=== PATIENT | female | born 1990 | race African-American/Black ===

== ENCOUNTER → 2016-12-03 | Day surgery (SDC) | payer OTHER ==
[2016-12-03] VITALS (11 sets, daily range): BP systolic 132–149; BP diastolic 62–91
[~2016-12-03] VITALS: Ht 175.3 cm; Wt 145.1 kg
[~2016-12-03] MED LIST: Acetaminophen (Non formulary) 1,000 MG/100 ML ML IV SCH; Alfentanil 2ml Inj ONE; Atropine Inj 1mg/10ml Syr IV PRN; Bacitracin 50000 Units Vial ONE; Bupivacaine w/Epi 0.5% 30ml Vial INJ ONE; D5 1/2NS 1,000 ML IV SCH; DiphenhydrAMINE 50mg/ml Inj IVP PRN; EPINEPHrine 1mg/1ml Amp ONE; HYDROmorphone 1mg/ml Carpuject SUBQ PRN; Hydromorphone 0.5mg/0.5ml inj IVP PRN; Ketorolac 30mg Inj IV PRN; Ketorolac 60mg Inj IV PRN; LORazepam Inj 2mg/ml 1ml IV PRN; LR 1000ml 1,000 ML IVLG SCH; LR 1000ml ONE; Labetalol 5mg/ml 20ml vial IV ONE; Labetalol 5mg/ml 20ml vial IV PRN; Lidocaine 1% 10mg/ml/Epi 0.005mg/ml 30ml vial INJ ONE; Lidocaine 1% MPF 10mg/ml 5ml ONE; Meperidine 25mg/ml Inj IV PRN; Metoclopramide 10mg/2ml Inj IVP PRN; Metoprolol 5mg/5ml Inj ONE; Midazolam 2mg/2ml Inj IVP PRN; Midazolam 2mg/2ml Inj ONE; NS Irrig 1000ml ONE; NS Irrig 4000ml IRRIG ONE; Norco 5mg/325mg tab ORAL PRN; Norco 7.5mg/325mg tab ORAL PRN; Oxycodone/Acetaminophen 5-325 ORAL PRN; Propofol 10mg/ml 20ml IV ONE; Ropivacaine 5mg/ml Vial 20ml INJ ONE; Tylenol #3 tab (300mg/30mg) ORAL PRN; ceFAZolin 1gm/50ml Premix 50 ML IV ONE; celeBREX 200mg Cap **SURGERY PATIENTS ONLY ORAL ONE; fentaNYL 100 mcg/2 mL IV PRN; fentaNYL 250mcg/5ml ONE; oxyCONTIN 20mg tab ORAL ONE
--- NOTE | 2016-12-03 06:54 | Pre-Procedure Note/Attestation ---
Pre-Procedure Note/Attestation Complete Prior to Procedure Planned Procedure: right Procedure Narrative: rt knee scope, ACL reconstruction, PLC reconstruction Indications for Procedure Pre-Operative Diagnosis: Rt knee ACL tear, PLC tear Attestation I attest that I discussed the nature of the procedure; its benefits; risks and complications; and alternatives (and the risks and benefits of such alternatives ), prior to the procedure, with the patient (or the patient's legal brand representative). I attest that, if there was a reasonable possibility of needing a blood transfusion, the patient (or the patient's legal brand representative) was given the [facility] standardized written summary, pursuant to the Leodan Roque Blood Safety Act ([place] Health and Safety Code # 1645, as amended). I attest that I re-evaluated the patient just prior to the surgery and that there has been no change in the patient's H&P, except as documented below:NONE STEFANY ALMODOVAR Dec 03, 2016 06:54
--- NOTE | 2016-12-03 13:26 | Anethesia Preoperative Eval ---
Anesthesia Pre-op PMH/ROS General Date of Evaluation: Dec 03, 2016 Time of Evaluation: 12:21 Anesthesiologist: Imtiaz ASA Score: ASA 2 Mallampati Score Class I : Soft palate, uvula, fauces, pillars visible Class II: Soft palate, uvula, fauces visible Class III: Soft palate, base of uvula visible Class IV: Only hard plate visible Mallampati Classification: Class III Surgeon: Maci Diagnosis: R Leg Pain Surgical Procedure: R knee ACL Repair Anesthesia History: none Family History: no anesthesia problems Allergies: Coded Allergies: No Known Allergies (Unverified , 11/28/16) Medications: see eMAR Past Medical History Other: obesity - BMI 47.3 Morbid Obesity Anesthesia Pre-op Phys. Exam Physician Exam Last Vital Signs Date Time Temp Pulse Resp B/P Pulse Ox O2 Delivery O2 Flow Rate FiO2 12/03/16 12:28 97.6 91 18 141/80 97 Room Air Constitutional: NAD Neurologic: CN 2-12 intact Cardiovascular: RRR Respiratory: CTA Gastrointestinal: S/NT/ND Airway Exam Mallampati Score: Class III MO: limited ROM: full Teeth: intact Anesthesia Pre-op A/P Labs Urine Test Test 12/03/16 12:10 Urine HCG, Qualitative Negative Risk Assessment & Plan Assessment: ASA 2 Plan: GA, Femoral Block Status Change Before Surgery: No Pre-Antibiotics Dru Grams Ancef IV Given Within 1 Hr of Incision: Yes Time Given: 12:46 Charles Kitchen MD Dec 03, 2016 13:26
--- NOTE | 2016-12-03 13:30 | Immediate Post-Op Evaluation ---
Immediate Post-Op Evalulation Immediate Post-Op Evalulation Procedure: R Knee ACL Repair Date of Evaluation: Dec 03, 2016 Time of Evaluation: 16:29 IV Fluids: 900 LR Blood Products: 0 Estimated Blood Loss: 150 Urinary Output: 0 Blood Pressure Systolic: 138 Blood Pressure Diastolic: 87 Pulse Rate: 97 Respiratory Rate: 16 O2 Sat by Pulse Oximetry: 99 Temperature (Fahrenheit): 96.9 Pain Score (1-10): 3 Nausea: No Vomiting: No Patient Status: awake, reacts, patent, extubated, none Hydration Status: adequate Dru Grams Ancef IV Given Within 1 Hr of Incision: Yes Time Given: 12:46 Charles Kitchen MD Dec 03, 2016 13:30
--- NOTE | 2016-12-03 16:15 | Brief Operative Note ---
Immediate Post Operative Note Operative Note Chief Complaint: rt knee instability Pre-op Diagnosis: rt knee ACL tear, PLC tear Procedure: rt knee scope, ACL reconstruction, PLC reconstruction Post-op Diagnosis: same as pre-op Findings: consistent w/pre-op dx studies Surgeon: md Maci Manager Agency: [facility] Anesthesiologist: MD terrence Anesthesia: general Specimen: none Complications: none Condition: stable Estimated Blood Loss: minimal Drains: none Implant(s) used?: Yes - biomet IRA MONET Dec 03, 2016 16:15
--- NOTE | 2016-12-03 16:23 | 48 Hour Post Anesthesia Eval ---
Post Anesthesia Evaluation Procedure: R Knee ACL Repair Date of Evaluation: Dec 03, 2016 Time of Evaluation: 18:43 Blood Pressure Systolic: 137 0: 86 Pulse Rate: 92 Respiratory Rate: 18 Temperature (Fahrenheit): 97.4 O2 Sat by Pulse Oximetry: 100 Airway: patent Nausea: No Vomiting: No Pain Intensity: 3 Hydration Status: adequate Cardiopulmonary Status: Stable Mental Status/LOC: patient returned to baseline Follow-up Care/Observations: 0 Post-Anesthesia Complications: 0 Follow-up care needed: ready to discharge Charles Kitchen MD Dec 03, 2016 16:23
--- NOTE | 2016-12-04 00:28 | Operative Note - Dictated ---
DATE OF OPERATION: 12/03/2016 PREOPERATIVE DIAGNOSES: 1. Right knee anterior cruciate ligament tear. 2. Right knee posterior lateral corner disruption with rupture of the lateral collateral ligament popliteus tendon and fracture of the tip of the fibula. PROCEDURE: 1. Right knee arthroscopy and extensive intra-articular shaving. 2. Right knee anterior cruciate ligament reconstruction using tibialis anterior allograft with sizing 9.5 mm with ToggleLoc femoral fixation and TunneLoc tibial fixation. 3. Right knee open posterior lateral reconstruction of the popliteus tendon as well as lateral collateral ligament with a tibialis anterior allograft size 7 mm through the fibular head and with fixation on the lateral femoral epicondyle with a single 7 mm interference screw. 4. Repair of the posterior lateral capsule as well as an open repair of the lateral meniscus using 2.9 mm double loaded juggernaut anchor loaded with #2 FiberWire sutures. 5. Repair of the biceps tendon and avulsion fracture of the fibula using two #2 FiberWire sutures repaired back on to the reconstructed lateral collateral ligament. SURGEON: Bryant Lux M.D. VIDEO TAPE EDITOR: Vicenta Fox PA-C. ANESTHESIOLOGIST: Charles Kitchen M.D. ANESTHESIA: General LMA anesthesia combined with femoral nerve block for postoperative pain management. EBL: Less than 200 mL. TOURNIQUET TIME: 135 minutes. COMPLICATIONS: None. SURGICAL INDICATION: Patient is a 25-year-old female, who sustained the above injury to her knee. The patient was treated non-operative initially, but this did not alleviate the patients symptoms. Therefore, after discussing all non-surgical and surgical options, and discussing all foreseeable risk and benefits of surgery, the patient opted for surgical treatment as described above. PATIENT POSITIONING: Patient was brought to the operating room table and placed supine. All pressure points were well padded. General Anesthesia was induced and a well padded tourniquet was placed on the thigh. The lateral post was placed and positioned to allow for opening of the medial compartment of the knee without placing pressure over the fibular head. Patients entire leg was prepped and draped in the usual sterile fashion. Time out was performed and preop abx was given and after exsanguinating the lower extremity, the tourniquet was inflated to 275 mmHg. EXAMINATION OF THE KNEE UNDER ANESTHESIA: Before prepping and draping the knee and while the patient was relaxed under general anesthesia, the knee was examined for ROM, and anterior and posterior, medial and lateral, posterolateral, and posteromedial instability. Pivot shift testing was performed. There was no evidence of loss of motion although there was marked instability with anterior drawer testing and varus testing both at 0 and 30 degrees. There is evidence of posterolateral corner instability with a positive pivot shift test. PORTAL PLACEMENT: The lateral portal was placed with the knee flexed to 90 degrees at the level of inferior border of the patella in line with the lateral border of the patella. A cm skin incision was made with an eleven blade, and using a blunt obturator, the capsule was gently penetrated. Sterile saline solution was then infused inside the knee with the aid of a pump set at 35 mm mercury pressure. Under direct visualization, placement of the medial portal was preliminary judged using a spinal needle, and it was subsequently established using the same technique as the lateral portal. Care was given not to injure the cutaneous branches of the medial Saphenous nerve or the subcutaneous veins. DIAGNOSTIC ARTHROSCOPY: The suprapatellar patellar pouch was visualized. There was extensive hematoma in the knee, which was debrided. There were no loose fragments. The medial and lateral patellar facets and trochlear groove articular cartilage was visualized. These structures were intact and were devoid of any articular cartilage damage. The medial plica shelf and the corresponding medial femoral condyle articular cartilage were visualized. There was no significantly thickening of the medial plica shelf and there were no kissing? lesion over the medial femoral condyle. The lateral gutter and the posterolateral corner of the knee were visualized. There were no loose bodies, and the popliteus tendon and other structures of the posterolateral corner of the knee were intact intra-articularly. At this point, the knee was placed in the figure of four position and the lateral compartment was entered. The lateral femoral condyle, lateral tibial plateau, and the anterior, body, and the posterior horn of the lateral meniscus were visualized and probed. The articular surfaces were intact and devoid of articular cartilage damage. There was damage to the popliteus tendon posteriorly and the lateral meniscus was avulsed off of the posterolateral as well as lateral aspect of the tibia and was lifted off. The knee was then placed at 90 degree and the ACL and PCL were visualized and probed. There was complete tear of the ACL. The PCL was completely intact on visualization and probing and it had excellent tension. The medial compartment was then entered and the medial femoral condyle, medial tibial plateau, and the anterior, body, and the posterior horn of the medial meniscus were visualized and probed. The articular surfaces were intact and devoid of articular cartilage damage. The medial meniscus was completely intact both on its undersurface and on the top. The medial gutter was visualized. There was no evidence of defect or loose fragments. The scope was then brought back to the patella femoral compartment. OPERATIVE ARTHROSCOPY: At this point, all loose debris and fragments were removed with the use of suction motorized shaver. Specific attention was given to assure all visible loose fragments were irrigated out of the knee joint with pump inflow and cannula outflow system. Pursuant to preoperative discussion with the patient, an allograft was used for ACL reconstruction. A 28 cm medium sized non-irradiated allograft was obtained from the tissue bank. The graft was defrosted in warm saline solution in its plastic wrapping. The graft was then cultured and subsequently placed in a triple antibiotic solution prior to handling. The graft was then trimmed to total length of 220 mm. The two ends of the graft were secured with #2 Fiberwire sutures placed using modified Krackaw technique up to 25 mm proximal to each end. All slack was removed from the stitched portion and the graft was placed on a graft tensioner wrapped in antibiotic soaked sponges in a safe place on the back table. Attention was then given to ACL reconstruction. The ACL remnant off of the tibial foot print and femoral notch was completely resected using a combination of suctioned electrocautery and pina. Care was given not to damage the transverse inter-meniscal ligament. Minimal notchplasty was performed using an aggressive 5.5 mm shaver just to be able to gain access and view the ACL attachment in the posterior aspect of the notch. The interns ridge was identified and debrided. The posterior aspect of the notch was then identified. This area was first debrided using a shaver and later cleaned off using a combination of curved curettes and pina. This area was probed to assure that the most posterior aspect of the notch is identified and there is no more bone posteriorly. Care was given not to damage the neurovascular bundle in the posterior compartment of the leg. At this point the scope was removed and using a #15 blade, a 2 cm incision was made on the medial face of the tibia approximately at the level of the tibial tubercle. Using a tibial tunnel guide, the position of entry of the guide wire into the knee joint was approximated. The guide was placed on the foot print of previous ACL stump at the medial half of the intertubercle groove to allow the pin to enter the knee joint in the tibial anatomical footprint of the ACL. A guide wire was first placed and the tibial hole was then drilled using a drill. The tibial tunnel was then dilated up to 2 mm using standard dilators at millimeter increments up to the final size of 9.5 mm. Care was given not to fracture any portion of the tunnel during this process. Once this was completed, a 9 mm. Femoral tunnel was drilled on the anatomical femoral attachment of the ACL, slightly laterally and inferiorly to the over the top position to allow for rotational stability. The femoral tunnel was drilled up to 35 mm deep. At this point, a [employer] ToggleLoc device was used for femoral fixation. A guide wire was passed thru the femoral tunnel and exited the lateral cortex of the femur and out of the soft tissue and grasp using a cocker. The 3.5 mm drill was used to drill the cortex and while the graft was loaded on the ToggleLoc device, it was then pulled up through the tibial tunnel into the joint and then into the femoral tunnel smoothly using the described technique and the metallic device was flipped to allow security of the graft. The security of the graft was checked by pulling on the graft multiple times thru the femoral tunnel and assuring that the graft is firmly fixed. The graft was then tensioned by apply approximately 20 lb of traction and and cycling the knee 20 times through full flexion and extension to take out all of the looseness in the graft. At this point, the graft was stabilized in the tibial tunnel with a 10 mm TunneLoc placed anterior to graft into the tibial tunnel. This was performed while keeping tension on the graft and applying a gentle posterior drawer to the knee. After completion of the fixation, anterior drawer and Harpal testing were negative and pivot shift was not present. The scope was then placed back into the knee to visualize the graft. There was excellent position of the graft, and upon probing, the graft appeared to have excellent tension. Anterior drawer testing with scope in the knee revealed excellent stability. The knee was brought up to hyperextension and there was no evidence of graft impingement on the notch. At this point, through a separate and distinct incision, lateral approach to the knee was undertaken and hockey stick incision was made over the lateral femoral epicondyle down to Gerdy's tubercle and proximally by about 5 cm. Incision was taken down through subcutaneous tissue. All bleeders were stopped. The anatomy was very distorted due to significant pain issues over posterolateral corner and lateral aspect of the knee. Initially, the biceps tendon was identified. There was a piece of fibular bone that was attached to it. Once this was identified, the fibular neck was identified. Once the fibular neck was identified, dissection was undertaken over the fibular neck and peroneal nerve was identified. The peroneal nerve was then followed proximally through the scar tissue and was identified and was protected throughout the case. At all times, the visualization of peroneal nerve was made and there was no evidence of damage to the peroneal nerve although it was engulfed within the scar tissue. At this point, the biceps femoris was identified. This was completely avulsed off the head of the fibula. There was a piece of fibular bone that was attached to it. This was dissected. The posterolateral corner of the knee was identified. The popliteus tendon was identified. The capsule was avulsed off of the lateral tibia. The meniscus had lifted off. At this point, two 2.9 mm juggernaut anchors were placed in and horizontal mattress sutures were placed through the meniscus using #2 FiberWire suture, and the meniscus and capsule were pulled down onto the tibia to repair the capsule of the meniscus. Once this was completed, that gave some stability to the knee. However, there was sufficient instability and the popliteus tendon and lateral collateral ligament was disrupted. Therefore at this point, care was given to reconstructing the popliteus and the lateral collateral ligament. Through direct visualization while protecting the peroneal nerve, a 6 mm tunnel was placed to the head of the fibula from anterior lateral to posterior medial. A 5.5 mm graft was then passed through the 6 mm tunnel. The graft was then passed underneath the IT band. IT band was divided at the lateral epicondyle and insertion of the lateral collateral ligament and popliteus was identified under direct visualization. At this point, a guide pin was placed superior and somewhat more proximal to avoid the conversion with the anterior cruciate ligament tunnel. A 7 mm x 35 mm tunnel was then created in the lateral femoral condyle at the insertion of the popliteus and lateral collateral ligaments. At this point, the grafts were measured and FiberWire sutures were tagged in, and using a Beath pin, the FiberWire sutures were placed, were pulled across to the medial side of the femur through the tunnel. At this point, the ends of the graft was passed underneath the biceps as well as the IT band, and lateral collateral ligament and the popliteus tendon were reconstructed using two ends of the tibialis anterior graft. The graft was then pulled into the 7 mm socket and both ends were pulled without any complication. At this point, a 7 mm peek interference screw was used to fix this graft. Once this was completed, the knee was placed through range of motion with isometry of the graft. The knee was stable to varus and valgus stressing. Anterior posterior stability was restored with anterior cruciate ligament reconstruction. The biceps femoris was then reattached onto the reconstructed lateral collateral ligament using two #2 FiberWire sutures. This provided excellent stability. Wounds were thoroughly irrigated using copious amount of fluid. Again throughout the procedure, the peroneal nerve could be visualized and the peroneal nerve was never in danger although again it was engulfed within the scar tissue. Wounds were thoroughly irrigated using copious amount of fluid. The IT band was then closed using #1 Vicryl suture, subcutaneous tissue was closed using 2-0 Vicryl suture, skin was closed using 3-0 Monocryl suture, and Steri-Strips were applied. The knee was then thoroughly irrigated using copious amount of fluid and a sterile dressing was applied. The patient was placed in a full knee extension with ice machine on and the brace on and was taken to the recovery room in stable condition. Bryant Lux M.D. DR: YRIS JOB#: [id number] CC:
== END | disposition home or self-care (01) ==
LOC: SUR 11:51
DX: S83.511A Sprain of anterior cruciate ligament of right knee, initial encounter (principal); S83.421A Sprain of lateral collateral ligament of right knee, initial encounter; S86.111A Strain of other muscle(s) and tendon(s) of posterior muscle group at lower leg level, right leg, initial encounter; S83.281A Other tear of lateral meniscus, current injury, right knee, initial encounter; S82.831A Other fracture of upper and lower end of right fibula, initial encounter for closed fracture; W01.0XXA Fall on same level from slipping, tripping and stumbling without subsequent striking against object, initial encounter; Y92.89 Other specified places as the place of occurrence of the external cause; Y99.9 Unspecified external cause status; E66.01 Morbid (severe) obesity due to excess calories; Z68.42 Body mass index [BMI] 45.0-49.9, adult; F17.210 Nicotine dependence, cigarettes, uncomplicated
CPT/HCPCS: 27428; 27784; 29888; 81025; C1713; J0171; J0690; J2250; J2405; J2704; J2795; J3010; J3490; J7120; 94003; 94150